=== PATIENT | male | born 1955 | race Caucasian/White ===

== ENCOUNTER 2018-08-27 16:22 | Observation (INO) | payer SELFPAY ==
[2018-08-27 16:59] LABS: #Basophils 0.2 thou/uL (0.0-0.2); #Eosinphils 0.5 thou/uL (0.0-0.7); #Lymphocytes 4.5 thou/uL (1.20-3.40); #Monocytes 1.1 thou/uL (0.11-0.59); #Neutrophils 6.3 thou/uL (1.40-6.50); %Basophils 1.3 % (0.0-1.0); %Eosinophils 3.8 % (0.0-10.0); %Monocytes 8.4 % (0.0-10.0); %Neutrophils 50.5 % (42.0-75.0); Hemoglobin 15.9 g/dL (14.0-18.0); Mean Corpuscular HGB CONC 32.8 g/dL (32.0-36.0); Mean Corpuscular Hemoglobin 29.1 pg (27.0-31.0); Mean Corpuscular Volume 88.7 fL (78.0-98.0); Mean Platelet Volume 9.1 fL (7.4-10.4); Platelet Count 313 thou/uL (130-400); RBC Distribution Width 11.5 % (11.5-14.5); Red Blood Cell (RBC) Count 5.46 mill/uL (4.70-6.10); White Blood Cell (WBC) Count 12.5 thou/uL (4.8-10.8)
--- NOTE | 2018-08-27 17:12 | RAD ---
RADIOGRAPH CHEST 1 VIEW: 08/27/18 HISTORY: 62-year-old male with chest pain, dizziness and hypertension. FINDINGS: The thoracic aorta is tortuous and ectatic. There is no evidence of air space density, pneumothorax, or pulmonary edema. The lateral costophrenic angles are sharp. IMPRESSION: 1) No acute pulmonary findings. 2) Ectasia of thoracic aorta. wendy [] POS: [facility]
[2018-08-27] MEDS ORDERED: Nitroglycerin 2% Ointment 1 INCH/1 GM Packet ONE (17:14)
[2018-08-27 17:21] LABS: ALT (SGPT) 34 U/L (8-55); AST (SGOT) 29 U/L (5-34); Albumin 4.3 g/dL (3.4-4.8); Alkaline Phosphatase 61 U/L (40-150); Anion Gap 13 mmol/L (10-20); BUN (Urea Nitrogen) 10 mg/dL (8.4-25.7); Bilirubin, Total 0.4 mg/dL (0.2-1.2); Calc. Creatinine Clearance 0 mL/min (70-130); Calcium 9.5 mg/dL (7.8-10.44); Carbon Dioxide 28 mmol/L (23-31); Chloride 101 mmol/L (98-107); Estimated GFR-MDRD 89; Globulin 3.8 g/dL (2.4-3.5); Glucose 90 mg/dL (80-115); Lipase 37 U/L (8-78); Potassium 3.4 mmol/L (3.5-5.1); Protein, Total 8.1 g/dL (5.8-8.1); Sodium 139 mmol/L (136-145)
[2018-08-27] MEDS ORDERED: Pantoprazole 40 MG VIAL ONE (18:38)
[2018-08-27 20:55] LABS: Troponin I 0.011 ng/mL (< 0.028)
[2018-08-27 21:48] VITALS: BMI 28.8
[2018-08-27] MEDS ORDERED: Acetaminophen 325 MG TAB PO PRN (23:08)
[2018-08-28 00:01] LABS: Troponin I Less than 0.010 ng/mL (< 0.028)
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
[2018-08-28 05:55] LABS: Cardiac Risk 5.6 (Less than 4.5)
[2018-08-28 12:00] VITALS: TEMP 98.1
--- NOTE | 2018-08-28 12:55 | PDOC.EVN ---
Event Note - Event Note Event Note: DC SUMMARY DICTATED #[id number]
[2018-08-28 15:02] VITALS: BP 165/86
--- NOTE | 2018-08-28 17:26 | NM ---
CARDIAC SPECT: 08/28/18 HISTORY: 62-year-old male with chest pain, hypertension, dyslipidemia. TECHNIQUE: A myocardial perfusion scan was performed using the single isotope one day protocol with technetium 9 9m Sestamibi. 9 millicuries was injected intravenously for the rest exam followed by 28 millicuries f or the stress study. A stress test was monitored and interpreted by Dr. Anish Campo. FINDINGS: Homogeneous tracer distribution is seen in the myocardial segments on stress and rest images without fixed or reversible defects. GATED SPECT LVEF: 56%. WALL MOTION EXAM: Normal. IMPRESSION: Normal myocardial perfusion scan. POS: [facility]
--- NOTE | 2018-08-29 04:54 | DIS ---
DATE OF ADMISSION: 08/27/2018 DATE OF DISCHARGE: 08/28/2018 ADMITTING DIAGNOSES: 1. Chest pain. 2. Hyperlipidemia. 3. Hypertension. DISCHARGE DIAGNOSES: 1. Chest pain and acute coronary syndrome ruled out. 2. Hypertension. 3. Hyperlipidemia. HOSPITAL COURSE: A 62-year-old male admitted to the Internal Medicine Team complaining of chest pain. The patient was admitted to Telemetry floor, had troponins done over 24 hours. The patient also had a stress test done as an inpatient as well as stress echo. The patient at point of time of discharge denies any nausea, vomiting, diarrhea, constipation, chest pain, fever, chills, or shortness of breath. Stated that his symptoms had resolved and were much improved. The patient was given prescriptions for aspirin 81 mg to be taken daily as well as pravastatin 20 mg to be taken daily. The patient was asked to resume his home metoprolol and follow up with his PCP within 1 week for further management and care with repeat blood work within 4 to 6 weeks. The patient at point of time of discharge was stable, denies any complaints. DISPOSITION: Home. FOLLOWUP: Follow up with PCP in 1 week. MEDICATIONS: See MAR. ACTIVITY: As tolerated with assistance as appropriate. DIET: Low-fat, low-calorie, high-fiber diet. CONDITION: Stable. Case and plan discussed with the patient at length, he understood and agreed with this plan. Job ID: [id number]
--- NOTE | 2018-08-29 12:26 | STRESS ---
Acquisition Time: 2018-08-28 13:26:37 Total Exercise Time: 00:07:00 Test Indications: CHEST PAIN Medications: Protocol: STEPHEN Max HR: 153 BPM 96% of Pred: 159 BPM Max BP: 202/090 mmHG Max Work Load: 10.1 METS RESTING ECG: NORMAL SINUS RHYTHM AT 75 BPM SYMPTOMS: DYSPNEA ON EXERTION NORMAL BP RESPONSE ECTOPY: RARE PVC'S ECG STRESS: NO SIGNIFICANT CHANGES INTERPRETATION: NEGATIVE GXT/AWAIT NUCLEAR IMAGES FOR DEFINITIVE DIAGNOSIS Confirmed by SYED STONE ([id number]), desk editor PAMELA ACOSTA ([id number] on 08/29/2018 12:25:37 PM Referred By: MD Neyda MAJANO Confirmed By:SYED STONE
--- NOTE | 2018-09-03 15:34 | EKG ---
Test Reason : CP Blood Pressure : / mmHG Vent. Rate : 067 BPM Atrial Rate : 067 BPM P-R Int : 174 ms QRS Dur : 098 ms QT Int : 452 ms P-R-T Axes : 029 -18 024 degrees QTc Int : 477 ms Normal sinus rhythm Voltage criteria for left ventricular hypertrophy Inferior infarct , age undetermined Abnormal ECG Confirmed by DIPESH MADISON ([id number]), legal editor KIMMY YEPEZ ([id number]) on 09/03/2018 3:34:42 PM Referred By: Confirmed By:DIPESH MADISON
== END 2018-08-28 17:38 | disposition home or self-care (01) ==
LOC: ERS 16:22 → 2SW 18:45
PROVIDERS: ADMIT Family Medicine; ATTEND Family Medicine
DX: R07.9 Chest pain, unspecified (principal); I10 Essential (primary) hypertension; E78.5 Hyperlipidemia, unspecified; K21.9 Gastro-esophageal reflux disease without esophagitis; K44.9 Diaphragmatic hernia without obstruction or gangrene; Z79.82 Long term (current) use of aspirin; Z79.899 Other long term (current) drug therapy; Z98.890 Other specified postprocedural states
CPT/HCPCS: 36415; 71045; 78452; 80053; 80061; 83690; 83880; 84484; 85025; 93005; 93017; 96361; 96374; A9500; C9113; G0378